=== PATIENT | male | born 1965 | race Asian ===

== ENCOUNTER 2021-08-31 16:55 | Emergency (ER) | payer OTHER, SELFPAY ==
[2021-08-31 17:00] VITALS: BP 148/95; PULSE 83; RESP 18; TEMP 36.6; O2SAT 100
[2021-08-31 17:10] VITALS: BP 148/95; PULSE 83; RESP 18; TEMP 36.6; O2SAT 100
--- NOTE | 2021-08-31 17:18 | ED.URI ---
HPI - URI/Sore Throat General Chief Complaint: Upper Respiratory Infection Stated Complaint: cough/fever/sullivan/congestion Time Seen by Provider: 08/31/21 17:08 Source: patient and RN notes reviewed Mode of arrival: ambulatory Limitations: no limitations History of Present Illness HPI Narrative: Patient presents today complaining of fever, fatigue, rhinorrhea, cough x2 days. Patient had a positive home test for COVID-19 and states he needs a note to confirm this for work. He has been taking ibuprofen at home with some relief of symptoms. Denies chest pain, shortness of breath, or any additional symptoms. States his and sister are both positive at home as well. MD elicited complaint: fever and cough Related Data Home Medications Medication Instructions Recorded Confirmed amlodipine 5 mg PO DAILY 08/31/21 08/31/21 Allergies Allergy/AdvReac Type Severity Reaction Status Date / Time No Known Allergies Allergy Verified 08/31/21 17:09 Review of Systems Review of Systems: CONSTITUTIONAL: Denies body aches, chills, or sweats.+ Fever, fatigue EYES: Denies visual changes, redness, or discharge. ENT: Denies congestion, sore throat, or otalgia.+ Rhinorrhea CARDIOVASCULAR: Denies chest pain, palpitations, or edema. RESPIRATORY: Denies dyspnea.+ Cough GASTROINTESTINAL: Denies abdominal pain, nausea, vomiting, or diarrhea. GENITOURINARY: Denies dysuria or hematuria. SKIN: Denies rash, itching, or wounds. MUSCULOSKELETAL: Denies back pain, joint pain, or myalgia. NEUROLOGIC: Denies headache, numbness, tingling, or weakness. PSYCH: Denies depression or anxiety. FOR[facility]LY [facility] Past Medical History Medical History (Updated 08/31/21 @ 17:23 by Karen Bear, [facility], ) Hypertension Comments At time of signature, I have reviewed and agree with nursing past medical, surgical, social and family history unless otherwise noted. Please see nursing chart for further information. There is no relevant family history pertinent to the presenting complaint Exam Narrative: GENERAL: Well-appearing, well-nourished, and in no acute distress. HEAD: Normocephalic, atraumatic. EYES: EOMI. No redness or drainage. Conjunctivae normal. ENT: Mucous membranes pink and moist. Nares clear. No rhinorrhea. TMs normal bilaterally. Throat normal. Uvula midline. NECK: Normal AROM. Supple. No lymphadenopathy. CHEST: No respiratory distress. Clear to auscultation. HEART: Regular rate and rhythm. No murmur appreciated. Normal peripheral pulses. EXTREMITIES: Normal range of motion. No edema. SKIN: Warm, dry, no rash. Capillary refill normal. Normal skin turgor. NEURO: No focal deficits. Alert and oriented x3. Gait steady. PSYCH: Normal affect. No signs of depression or anxiety. Course Course Level of Care: Express Care Visit Vital Signs Vital signs: Vital Signs Temperature 97.9 F 08/31/21 17:00 Pulse Rate 83 08/31/21 17:00 Respiratory Rate 18 08/31/21 17:00 Blood Pressure 148/95 H 08/31/21 17:00 Pulse Oximetry 100 08/31/21 17:00 Temperature 97.9 F 08/31/21 17:10 Pulse Rate 83 08/31/21 17:10 Respiratory Rate 18 08/31/21 17:10 Blood Pressure 148/95 H 08/31/21 17:10 Pulse Oximetry 100 08/31/21 17:10 Reviewed. Pt has been instructed to follow up with his PCP regarding his elevated blood pressure today. MDM - URI/Sore Throat Differential Diagnosis Differential diagnosis: Likely upper respiratory infection, viral infection and other (COVID-19) Critical Care Time Critical Care Time Critical Care Time: No Discharge Plan Discharge Clinical Impression: COVID-19 Patient Disposition: Home, Self-Care Condition: Stable Instructions: COVID-19 (Coronavirus Disease 2019) (ED) Additional Instructions: You have tested positive for COVID-19. This requires 5 days of quarantine in total, followed by 5 days of mask wearing. You may come off of 5 days of quarantine if your symptoms are improving. If not, you
== END 2021-08-31 17:30 | disposition home or self-care (01) ==
PROVIDERS: Emergency Provider Nurse Practitioner
DX: U07.1 COVID-19 (principal); I10 Essential (primary) hypertension
CPT/HCPCS: 99211; G0463

== ENCOUNTER 2022-03-19 11:54 | Emergency (ER) | payer OTHER, SELFPAY ==
[2022-03-19 11:59] VITALS: BP 140/90; PULSE 85; RESP 16; TEMP 36.4; O2SAT 97
--- NOTE | 2022-03-19 11:59 | ED.GENADULT ---
HPI - General Adult General Chief complaint: Extremity Injury, Lower Stated complaint: Body Pain,Knee Pain Time Seen by Provider: 03/19/22 12:05 Source: patient, RN notes reviewed and old records reviewed Mode of arrival: ambulatory Limitations: no limitations History of Present Illness HPI narrative: 56-year-old male presents to the [facility] with concerns over COVID. Patient is complaining of left knee pain which he was evaluated for at [facility] yesterday, diagnosed with fluid on his knee and prescribed medications. Also reports joint pain that has been moving around since even before COVID started. Patient reports his joints ache on a regular basis. Reports having lab work done, according to discharge papers had a CBC, CMP, kidney functions, ESR done yesterday, patient reports all were negative. Has an appointment with his primary care provider Patient reports the last 5 days his symptoms have gotten worse. Denies fevers. No nausea vomiting or diarrhea. Denies chest pain Related Data Home Medications Medication Instructions Recorded Confirmed amlodipine 5 mg tablet 5 mg PO DAILY 08/31/21 08/31/21 ergocalciferol (vitamin D2) 1,250 03/19/22 mcg (50,000 unit) capsule meloxicam 15 mg tablet mg 03/19/22 Allergies Allergy/AdvReac Type Severity Reaction Status Date / Time No Known Allergies Allergy Verified 08/31/21 17:09 Review of Systems Review of Systems: All systems reviewed & are unremarkable except as noted in HPI and below Constitutional: Constitutional: Reports no additional constitutional complaints, Denies chills and Denies fever(s) Eyes: Eyes: Reports no additional eye complaints ENT: Reports system reviewed and no additional complaints, except as documented Cardiovascular: Cardiovascular: Reports no additional cardiovascular complaints Respiratory: Respiratory: Reports no additional respiratory complaints Gastrointestinal: Gastrointestinal: Reports no additional gastrointestinal complaints Musculoskeletal: Musculoskeletal: Reports as per HPI, Reports arthralgias (Left knee) and Reports joint swelling (Left knee) Integumentary/Breasts: Skin/Breast: Reports system reviewed and no additional complaints, except as docu Neurologic: Reports system reviewed and no additional complaints, except as documented Psychiatric: Psychiatric: Reports no additional psychiatric complaints Allergic/Immunologic: Allergic/Immunologic: Reports no additional allergic/immunologic complaints PMFSH Past Medical History Medical History Hypertension Social History Social History (Updated 03/19/22 @ 19:26 by Chanel Gustafson APRN) Gender identity (if verbalized by the patient): Male Comments At the time of my signature, I reviewed and agree with the nursing past medical, surgical, social, and family history. There is no relevant family history pertinent to the patient complaint. Exam Const: General: healthy appearing, no acute distress and alert Nutritional Appearance: well nourished Orientation/consciousness: patient oriented x3 Limitations: no limitations HENMT: Head: normal to inspection Ears: external ears normal Eyes: General: appearance normal, both eyes and all related structures Pupils: Equal, round and reactive pupils present Neck: Neck: normal visual inspection, no lymphadenopathy and no meningeal signs Chest: Chest palpation & inspection: normal inspection of the chest Resp: Effort & Inspection: normal respiratory effort and no use of accessory muscles Auscultation: clear to auscultation bilaterally, no crackles, no rales, no rhonchi and no wheezes Cardio: Rate: regular rate Rhythm: regular rhythm Back/Spine/Pelvis: Cervical Spine: normal cervical lordosis Thoracic/Lumbar Spine: thoracic and lumbar spine normal to inspection Skin: General skin exam: normal color Rashes: no rashes Wounds: no wounds Neuro: General:
== END 2022-03-19 12:45 | disposition home or self-care (01) ==
PROVIDERS: Emergency Provider Nurse Practitioner
DX: M25.50 Pain in unspecified joint (principal); Z20.822 Contact with and (suspected) exposure to COVID-19; I10 Essential (primary) hypertension
CPT/HCPCS: 87426; 99213; C9803; G0463

== ENCOUNTER 2022-05-14 12:43 | Outpatient (CLI) | payer OTHER, SELFPAY ==
--- NOTE | ~2022-05-14 | XR_ITS ---
EXAMINATION: XR chest 2V 05/14/2022 12:59 INDICATION: Chronic cough and chest tightness PROCEDURE: 2 view chest COMPARISON: Comparison to multiple prior studies sequentially, with oldest reviewed study dated 06/14. FINDINGS: The lungs are clear. The cardiomediastinal silhouette is within normal limits. There are no pleural effusions. There is no pneumothorax suspected. IMPRESSION: 1: NO ACUTE CARDIOPULMONARY DISEASE. Reviewed, dictated and finalized at location A.
== END 2022-05-14 12:44 | disposition home or self-care (01) ==
PROVIDERS: PCP Internal Medicine; Visit Provider Internal Medicine
DX: R05.3 Chronic cough (principal)
CPT/HCPCS: 71046

== ENCOUNTER 2022-06-30 13:30 | Outpatient (CLI) | payer OTHER, SELFPAY ==
--- NOTE | ~2022-06-30 | XR_ITS ---
EXAM: XR lumbar spine 2-3V DATE: 06/30/2022 13:53 HISTORY: low back pain, NKI . COMPARISON: None available. FINDINGS: 5 nonrib-bearing lumbar-type vertebral bodies. Pedicles intact. Normal vertebral body alig nment. Vertebral body heights preserved. Multilevel disc space narrowing and marginal osteophytosis, moderate at L3-4, mild at all remaining lumbar levels. Normal facets and posterior elements. No fract ure or dislocation. IMPRESSION: Lumbar spondylosis. Reviewed, dictated and finalized at location K. L ALIGNMENT TECHNICIAN IMPRESSION: Lumbar spondylosis.
== END 2022-06-30 13:31 | disposition home or self-care (01) ==
PROVIDERS: PCP Emergency Medicine; Visit Provider Emergency Medicine
DX: M47.896 Other spondylosis, lumbar region (principal)
CPT/HCPCS: 72100

== ENCOUNTER 2024-11-09 14:01 | Outpatient (CLI) | payer OTHER, SELFPAY ==
--- NOTE | ~2024-11-09 | XR_ITS ---
EXAMINATION: XR chest 2V 11/09/2024 14:18 INDICATION: Cough PROCEDURE: 2 view chest COMPARISON: Comparison to multiple prior studies sequentially, with oldest reviewed study dated 05/13. FINDINGS: The lungs are clear. The cardiomediastinal silhouette is within normal limits. There are no pleural effusions. There is no pneumothorax suspected. IMPRESSION: 1: NO ACUTE CARDIOPULMONARY DISEASE. Reviewed, dictated and finalized at location A.
--- OUTSIDE RECORDS SUMMARY | 2024-11-09 15:32 | XMS_ITS | Clinical Summary ---
Author Organization [facility] Address [address] [place] [id number] Care Team Providers Care Child Center Assistant Name Role Phone Lauryn Hogan MD Primary Care Provider [phone] Allergies No known active allergies Medications meloxicam (MOBIC) 7.5 mg tablet Take 1 tablet (7.5 mg total) by mouth daily for 14 days 14 tablet 2 Active diclofenac sodium (VOLTAREN) 1 % gel Apply 1 g topically 4 (four) times a day for 7 days 28 g 2 Active Social History Tobacco Use Types Packs/Day Years Used Date Smoking Tobacco: Never Assessed Personal Safety Answer Date Recorded Getting School Help Needed Not on file 10/26 Sex and Gender Information Value Date Recorded Sex Assigned at Not on file 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 Gender Identity Not on file Sexual Orientation Not on file Last Filed Vital Signs Vital Sign Reading Time Taken Comments Blood Pressure 125/98 03/18/2022 11:53 AM CDT Pulse 81 03/18/2022 11:53 AM CDT Temperature 36.6 C (97.8 F) 03/18/2022 11:53 AM CDT Respiratory Rate 16 03/18/2022 11:53 AM CDT Oxygen Saturation 95% 03/18/2022 11:53 AM CDT Inhaled Oxygen Concentration - - Weight 82.1 kg (181 lb) 03/18/2022 11:53 AM CDT Height 177.8 cm (5' 10 ) 03/18/2022 11:53 AM CDT Body Mass Index 25.97 03/18/2022 11:53 AM CDT Plan of Treatment Health Maintenance Due Date Last Done Comments Colon Cancer Screening-Colonoscopy 1965 Depression Screening 1965 Hepatitis C Screening 1965 Regular Well Visit/Exam 18-64 1983 Zoster Vaccine (1 of 2) 2015 Prostate Cancer Screening-PSA 04/02/2018 04/02/2016 Covid-19 Vaccine (3 - 2023-2 5 season) 2024 12/30/2020, 12/09/2020 Influenza Vaccine (#1) 2024 05/11/2016 DTaP/Tdap/Td Vaccine (2 - Td or Tdap) 03/21/2026 03/21/2016 Hepatitis B Screening Completed 10/17/2016 , 05/11/2016, 03/21/2016 Pneumococcal vaccine <65 Aged Out No longer eligible based on patient's age to complete this topic Procedures Procedure Name Priority Date/Time Associated Diagnosis Comments PSA SCREEN Routine 04/02/2016 3:46 PM CDT from Last 3 Months or Most Recently Relevant to Health Maintenance Results * PSA screen (04/02/2016 3:46 PM CDT) [facility] PSA Screen 0.9 0.0 - 3.9 ng/mL 04/02/2016 5:52 PM CDT [facility]ULTS Comment: Method: ECLIA Values obtained by different assay methods cannot be used interchangeably. Use sequential testing to confirm baseline if assay method changed during patient monitoring. 04/02/2016 3:46 PM CDT 04/02/2016 4:57 PM CDT Lauryn Hogan MD LAB BLOOD ORDERABLES Final Result [facility] HISTORICAL RESULTS from Last 3 Months or Most Recently Relevant to Health Maintenance Insurance [facility] Care Teams Child Center Assistant Relationship Specialty Start Date End Date Lauryn Hogan MD [address] [facility] [place] [address] PCP - General Internal Medicine 03/18/22
--- OUTSIDE RECORDS SUMMARY | 2024-11-09 15:32 | XMS_ITS | CONTINUITY OF CARE DOCUMENT ---
Author Name arley carlosmerly Address Unknown Organization [facility] Address [id number] [place] [address] [address] [place] [address] Phone [phone] Care Team Providers Care Internet Assessor Name Role Phone Raúl Nova MD Unavailable [phone] MARIA GONCALVES MD Unavailable [phone] MARIA GONCALVES MD Unavailable [phone] PROBLEMS Condition Status Date Provider Notes Cardiology examination active Raúl pulido MD Hypertension active Raúl Nova MD Chest pain-type to be determined active Vic Nova MD Exertional shortness of breath active Kathy Nova MD Prediabetes active Raúl Nova MD ENCOUNTERS Date Type Provider Location Encounter Diag nosis - In-person encounter Office Visit Raúl Nova MD [facility] - In-person encounter Office Visit Raúl Nova MD [facility] Cardiology examinationHypertensionChest pain-type to be determinedExertional shortness of breathPrediabetes VITAL SIGNS Date Observation Value Provider Body Mass Index (Ratio) 25.11 kg/m2 Henny Nova MD blood pressure, diastolic 103 mm[Hg] Ke rri Ilsa blood pressure, systolic 147 mm[Hg] Ker ri Ilsa blood pressure, cuff size large Ke veronica Shayreyjazmine oxygen saturation, oximetry 97 % Kelsey Ilsa respiratory rate E&M 16 /min Kelsey Canela bhaskarcandiejazmine pulse rate 75 /min Kelsey Kolopezlori mary weight E&M 175 [lb_av] Kelsey Kojose hernandez height E&M 70 [in_i] Kelsey Boyd carlozer weight E&M 174 [lb_av] Collettedangelo LunsfordWhite Body Mass Index (Ratio) 24.99 kg/m2 Henny Nova MD blood pressure, diastolic 99 mm[Hg] [facility] Moses blood pressure, systolic 140 mm[Hg] Jabier Moses respiratory rate E&M 16 /min Ronit el oxygen saturation, oximetry 97 % Ronit Moses pulse rate 75 /min Ronit Moses weight E&M 174.2 [lb_av] Ronit Moses height E&M 70 [in_i] Ronit Moses HISTORY OF MEDICATION USE Medication Status Instructions Dates Provider Indications Com ments Lotrel 5-10 mg capsule active Take 1 capsule by mouth once a day Raúl Nova MD amlodipine 5 mg tablet completed - Raúl Nova MD SOCIAL HISTORY Date Observation Value Provider social history E&M S moking History: P rajeev has never smoked. Raúl Nova MD smoking status Never smoker Kelsey posey passive cigarette sm doreen exposure no Yashira José chewing tobacco use Never Yashira dutta social history reviewed E&M revi ewed - no changes required Yashira José number of grandchildren Raúl Nova MD social history E&M S moking History: Nicanor boo has never smoked. Raúl Nova MD social history reviewed E&M revi ewed - no changes required Raúl Nova MD passive cigarette sm doreen exposure no Ronitdakota Moses chewing tobacco use Never Ronit Larry machado smoking status Never smoker Ronit Josué INSURANCE PROVIDERS Payer name Policy type / Coverage type Cresencio red green party ID [place] MEDICA[employer] (2) Medicaid [id number] ADVANCE DIRECTIVES Name Date DISCUSSED - NO DECISION MADE TREATMENT PLAN Date Name Performer [id number],S, N eeds cardiac workup. No family hx of heart disease. August 17, 2022 CONCLUSIONS: 1 . Hyperdynamic left ventricular function. Normal left ventricular size. Normal left ventricular wall thickness. E/E': 7.0 Left v entricular ejection fraction is measured at 75 %. 2 . Normal right ventricular size. 3 . Normal appearing tricuspid valve leaflets. There is trace physiologic tricuspid valve regurgitation. IVC is normal in size with n ormal respiratory response. Estimated peak pulmonary artery systolic pressure is 15.0 mmHg. E lectronically Signed By: Vahe Nova MD, FACC 2 022-12-16 16:29:44 ACCOUNT SERVICE REPRESENTATIVE C C: Raúl Nova MD, FACC Summary and Interpretation 1 . Normal exercise capacity\par 2. Resting hypertension with normal response to exercise\par 3. No diagnostic ST or T changes\par 4. No significant arrhythmias\par 5. There is no evidence for exercise-induced myocardial ischemia Raúl Nova MD [id number],C,Start him on Lotrel 5-10mg Raúl Nova MD [id number],S,N egative stress test for ischemia, hypertensive response. Recommended additional BP medication. Raúl Nova MD [id number],S,Treadmill str ess test. Check Echo. Raúl Nova MD [id number],C,O n Isabella Young is updated medication list for this problem includes: Amlodipine 5 Mg Tablet (Amlodipine) BP today: 140/99 Raúl Nova MD [id number],S,N eeds cardiac workup. No family hx of heart disease. Raúl Nova MD Cardiology: N eeds cardiac workup. No family hx of heart disease. August 17, 2022 CONCLUSIONS: 1 . Hyperdynamic left ventricular function. Normal left ventricular size. Normal left ventricular wall thickness. E/E': 7.0 Left v entricular ejection fraction is measured at 75 %. 2 . Normal right ventricular size. 3 . Normal appearing tricuspid valve leaflets. There is trace physiologic tricuspid valve regurgitation. IVC is normal in size with n ormal respiratory response. Estimated peak pulmonary artery systolic pressure is 15.0 mmHg. E lectronically Signed By: Vahe Nova MD, FACC 2 022-12-16 16:29:44 ACCOUNT SERVICE REPRESENTATIVE C C: Raúl Nova MD, FACC Summary and Interpretation 1 . Normal exercise capacity\par 2. Resting hypertension with normal response to exercise\par 3. No diagnostic ST or T changes\par 4. No significant arrhythmias\par 5. There is no evidence for exercise-induced myocardial ischemia Raúl Nova MD Cardiology:Start him on Lotrel 5 -10mg Raúl Nova MD Cardiology:Negative stress test for ischemia, hypertensive response. Recommended additional BP medication. Raúl Nova MD Cardiology:Treadmill stress test . Check Echo. Raúl Nova MD Cardiology:On H is updated medication list for this problem includes: Amlodipine 5 Mg Tablet (Amlodipine) BP today: 140/99 Raúl Nova MD Cardiology:Needs car diac workup. No family hx of heart disease. Raúl Nova MD Date Name 6 minute walk test Ambulatory Oximetry DLCO - 34441 FRC - 78140 FVC - 17688 Stress Routine Complete Echo HISTORY OF PROCEDURES Procedure Date Procedure Name Provider Procedure Notes S tatus Spirometry Raúl Nova MD compl eted FVC / MVV - 25531 Raúl Nova MD completed FRC - 87626 Raúl Nova MD comp leted SpO2 w/o 6min walk/titration Raúl Nova MD completed SVC - 60537 Raúl Nova MD comp leted DLCO - 02930 Raúl Nova MD com pleted EKG Raúl Nova MD compl eted
--- OUTSIDE RECORDS SUMMARY | 2024-11-09 15:32 | XMS_ITS | Data Portability ---
Author Organization [facility] IP Address [address] [place] [id number] Care Team Providers Care Manager New Product Name Role Phone WESLEY NOVA Referring Provider WESLEY NOVA Primary Care Provider Assessment No assessment recorded. Plan of Treatment Reminders Order Date Submit Date Provider Last Modified By Organization Details Last Modified Time Details Appointments None recorded. Lab urinalysis , dipstick 2017 018 rprophete 1 In-Office Order, Internal Use Only DO Not Attach Compendium DO Not Attach Compendium, Do Not Delete/merge, [id number] 8 13:12:35 urinalysis , dipstick 2017 018 rprophete 1 In-Office Order, Internal Use Only DO Not Attach Compendium DO Not Attach Compendium, Do Not Delete/merge, [id number] 8 12:16:15 PSA, serum or plasma 2017 018 [facility] (Lab), [address] [place], [address], 8 07:34:39 Referral None recorded. Procedures None recorded. Surgeries None recorded. Imaging US, kidney - Drink 24 - 32 oz prior to test and do not empty bladder 2017 018 ÓSCAR Not available 8 10:09:25 US, bladder - Drink 24 - 32 oz prior to test and do not empty bladder / Patient also having US Bladder 2017 018 ÓSCAR Not available 8 12:40:27 Medication Orders None recorded. Patient TargetsNo targets recorded. Patient Instructions Encounter Date Encounter Id Patient Instructions Last Modified By Organization Details Last Modified Time 01/15/2018 [id number] blood in the urine: care instructions Not available 01/15/2018 12:16:15 Doing US for history of blood in urine. Not available 01/15/2018 12:13:42 01/29/2018 [id number] blood in the urine: care instructions Not available 01/29/2018 13:12:35 Blood in urine has cleared. Never had pain or abnormal imaging. Recheck in 0ne tear. Not available 01/29/2018 13:11:55 Reason for Referral None Reported. Results Created Date Observation Date Name Description Value Unit Range Abnormal Flag Note LastModifiedBy Organization Detail LastModifiedTime 01/16/20 18 01/15/2018 urina lysis , dipst ick Leukocytes Negati ve Not Available In-Office Order Internal Use Only DO Not Attach Compendium DO Not Attach Compendium, Do Not Delete/merge, [id number] 01/15/2018 11:46:46 01/16/20 18 01/15/2018 urina lysis , dipst ick Nitrite negati ve Not Available In-Office Order Internal Use Only DO Not Attach Compendium DO Not Attach Compendium, Do Not Delete/merge, 01/15/2018 11:46:46 01/16/20 18 01/15/2018 urina lysis , dipst ick Protein Negati ve mg/dL Not Available In-Office Order Internal Use Only DO Not Attach Compendium DO Not Attach Compendium, Do Not Delete/merge, [id number] 01/15/2018 11:46:46 01/16/20 18 01/15/2018 urina lysis , dipst ick pH 5.0 Not Available In-Office Order Internal Use Only DO Not Attach Compendium DO Not Attach Compendium, Do Not Delete/merge, 01/15/2018 11:46:46 01/16/20 18 01/15/2018 urina lysis , dipst ick Blood Negati ve Jonnathan/uL Not Available In-Office Order Internal Use Only DO Not Attach Compendium DO Not Attach Compendium, Do Not Delete/merge, [id number] 01/15/2018 11:46:46 01/16/20 18 01/15/2018 urina lysis , dipst ick Specific [place] 1.020 Not Available In-Off ice Order Internal Use Only DO Not Attach Compendium DO Not Attach Compendium, Do Not Delete/merge, 01/15/2018 11:46:46 01/16/20 18 01/15/2018 urina lysis , dipst ick Ketone Negati ve mg/dL Not Available In-Office Order Internal Use Only DO Not Attach Compendium DO Not Attach Compendium, Do Not Delete/merge, 01/15/2018 11:46:46 01/16/20 18 01/15/2018 urina lysis , dipst ick Bilirubin Negati ve Not Available In-Office Order Internal Use Only DO Not Attach Compendium DO Not Attach Compendium, Do Not Delete/merge, 01/15/2018 11:46:46 01/16/20 18 01/15/2018 urina lysis , dipst ick Glucose Negati ve mg/dL Not Available In-Office Order Internal Use Only DO Not Attach Compendium DO Not Attach Compendium, Do Not Delete/merge, 01/15/2018 11:46:46 01/16/20 18 01/15/2018 urina lysis , dipst ick Appearance Clear Not Available In-Offi ce Order Internal Use Only DO Not Attach Compendium DO Not Attach Compendium, Do Not Delete/merge, 01/15/2018 11:46:46 01/16/20 18 01/15/2018 urina lysis , dipst ick Color Yellow Not Available In-Office Order Internal Use Only DO Not Attach Compendium DO Not Attach Compendium, Do Not Delete/merge, 01/15/2018 11:46:46 01/30/20 18 01/29/2018 urina lysis , dipst ick Leukocytes Negati ve Not Available In-Office Order Internal Use Only DO Not Attach Compendium DO Not Attach Compendium, Do Not Delete/merge, 01/29/2018 13:00:37 01/30/20 18 01/29/2018 urina lysis , dipst ick Nitrite negati ve Not Available In-Office Order Internal Use Only DO Not Attach Compendium DO Not Attach Compendium, Do Not Delete/merge, 01/29/2018 13:00:37 01/30/20 18 01/29/2018 urina lysis , dipst ick Protein Negati ve mg/dL Not Available In-Office Order Internal Use Only DO Not Attach Compendium DO Not Attach Compendium, Do Not Delete/merge, 01/29/2018 13:00:37 01/30/20 18 01/29/2018 urina lysis , dipst ick pH 6.0 Not Available In-Office Order Internal Use Only DO Not Attach Compendium DO Not Attach Compendium, Do Not Delete/merge, 01/29/2018 13:00:37 01/30/20 18 01/29/2018 urina lysis , dipst ick Blood Negati ve Jonnathan/uL Not Available In-Office Order Internal Use Only DO Not Attach Compendium DO Not Attach Compendium, Do Not Delete/merge, 01/29/2018 13:00:37 01/30/20 18 01/29/2018 urina lysis , dipst ick Specific [place] 1.015 Not Available In-Off ice Order Internal Use Only DO Not Attach Compendium DO Not Attach Compendium, Do Not Delete/merge, 01/29/2018 13:00:37 01/30/20 18 01/29/2018 urina lysis , dipst ick Ketone Negati ve mg/dL Not Available In-Office Order Internal Use Only DO Not Attach Compendium DO Not Attach Compendium, Do Not Delete/merge, 01/29/2018 13:00:37 01/30/20 18 01/29/2018 urina lysis , dipst ick Bilirubin Negati ve Not Available In-Office Order Internal Use Only DO Not Attach Compendium DO Not Attach Compendium, Do Not Delete/merge, 01/29/2018 13:00:37 01/30/20 18 01/29/2018 urina lysis , dipst ick Glucose Negati ve mg/dL Not Available In-Office Order Internal Use Only DO Not Attach Compendium DO Not Attach Compendium, Do Not Delete/merge, 01/29/2018 13:00:37 01/30/20 18 01/29/2018 urina lysis , dipst ick Appearance Clear Not Available In-Offi ce Order Internal Use Only DO Not Attach Compendium DO Not Attach Compendium, Do Not Delete/merge, [id number] 01/29/2018 13:00:37 01/30/20 18 01/29/2018 urina lysis , dipst ick Color Yellow Not Available In-Office Order Internal Use Only DO Not Attach Compendium DO Not Attach Compendium, Do Not Delete/merge, [id number] 01/29/2018 13:00:37 01/22/20 18 01/21/2018 US, bladd er No observ ation record ed. Not Available 01/22 14:38:33 02/05/20 18 01/21/2018 US, kidne y No observ ation record ed. [address] Out Patient Centralized Scheduling [address] [facility] [place], [address], 02/04/2018 10:10:06 Result Notes None recorded. Problems Name Problem SNOMED Code Status Onset Date Resolution Date Notes Provider Name and Address Organization Details Recorded Time Essential hypertension 91230343 Active 2017 Gwen ramos [facility] 8 11:46:13 Problem Notes None recorded. Procedures Surgical History None recorded. Imaging Results Imaging Date Name Status LastModified by Organiz ation Details LastModified Time 01/21/2018 US, bladder completed Information n ot available 01/22/2018 14:38:33 01/21/2018 US, kidney completed [address] Out Patient Centralized Scheduling [address] [place], [address], 02/04/2018 10:10:06 Procedure Notes None recorded. Medical Equipment None Reported. Allergies Allergen ID Allergen Name Allergen Category Reaction Reaction Severity Criticality Documentation Date Start Date Code Code System Note Provider Name and Address Organization Details Recorded Time 583086 purified protein derivativ e of tuberculi n medicatio n Not available Not available Not available 01/15/2018 8948 RxNorm Not Available Not Available Not Available Medications Name Sig Start Date Stop Date Status Note LastModified by Organization Details LastModified Time amlodipine 5 mg tablet active Not Available Not Available Not Available triamcinolone acetonide 0.1 % topical cream active Not Available Not Availabl e Not Available amoxicillin 875 mg tablet active Not Available Not Available No t Available levofloxacin 500 mg tablet active Not Available Not Availabl e Not Available clotrimazole 1 % topical cream active Not Available Not Availa ble Not Available amoxicillin 875 mg-potassium clavulanate 125 mg tablet active Not Available Not Available No t Available Vitals Date Recorded Body height Body mass index (BMI) Body weight Heart rate Body temperature Systolic blood pressure Diastolic blood pressure Provider Name and Address Organization Details Last Updated DateTime 8 177.8 cm 23.3 kg/m2 19728.1 2 g 73 /min 97.3 [degF] 136 mm[Hg] 93 mm[Hg] Gwen Lorenz [facility] 8 11:42:52 Date Recorded Body height Body mass index (BMI) Body weight Heart rate Body temperature Systolic blood pressure Diastolic blood pressure Provider Name and Address Organization Details Last Updated DateTime 8 177.8 cm 23.4 kg/m2 12892.5 6 g 67 /min 97.3 [degF] 129 mm[Hg] 91 mm[Hg] Gwen Lorenz [facility] 8 13:00:22 Date Recorded Body height Body mass index (BMI) Body weight Heart rate Respiratory rate Body temperature Systolic blood pressure Diastolic blood pressure Provider Name and Address Organization Details Last Updated DateTime 9 175.26 cm 26.6 kg/m2 41863.9 9 g 85 /min 18 /min 97.2 [degF] 132 mm[Hg] 87 mm[Hg] Shahana Mills LPN [facility] 9 16:44:20 Social History Question Answer Notes LastModified by Organizat ion Details LastModified Time Tobacco Smoking Status Never Smoker Gwen ramos, [place] - [facility] 01/15/2018 11:46:27 What Was The Date Of Your Most Recent Tobacco Screening? 01/29/2018 Information n ot available 03/05/2019 Sex: Unknown Functional Status None recorded. Mental Status None recorded. Family History Nothing Reported. Medical History No medical history recorded. Past Encounters Encounter ID Performer Location Encounter Start Date Encounter Closed Date Diagnosis/Indication Diagnosis SNOMED-CT Code Diagnosis ICD10 Code Diagnosis Note [id number] Boom Haywood MD [facility] [address] [place] [address] 01/15/2018 11:15:20 01/15/2018 12:41:12 Blood in urine 71139334 R31.9 [id number] Boom Haywood MD [facility] [address] [place] [address] 01/29/2018 11:43:15 01/29/2018 15:04:24 Blood in urine 61928770 R31.9 [id number] Matias Liriano MD [facility] [address] [place] [address] 08/03/2019 16:33:49 08/04/2019 10:44:48 Oral lesion 9442252610 107 K13.70 i discussed with pt and he agreed to watch it doesn't appear to be a cancer Chronic rhinitis 2243166 6 J31.0 use otc ointment PRN Health Concerns Section Related Observation LastModified by Organization Detai ls LastModified Time None Recorded Concern Status LastModified by Organization Details LastModified Time None Recorded Advance Directives Directive None Recorded Payers Encounter Date Sequence Insurance Name Policy Number Policy Mcallister Covered Member ID Mcallister Member ID Guarantor Name 01/15/2018 1 [facility] PRIOR TO 02/09/2021 (MEDICAID REPLACEMENT - HMO) Nelson E Malghani [id number] Nelson Malani 01/29/2018 1 [facility] PRIOR TO 02/09/2021 (MEDICAID REPLACEMENT - HMO) Nelson E Malghani [id number] Nelson Malani 08/03/2019 1 [facility] PRIOR TO 02/09/2021 (MEDICAID REPLACEMENT - HMO) Nelson E Malghani [id number] Nelson Notes Date Note Type Note Provider Name and Address Organization Details Recorded Time 01/15/2018 text/html History of blood in urine and possible UTI years ago in [place]. Parents over 80 with no renal disease. Father now passed. Had small blood in urine without pain or change in voiding. No pain now but some premature ejaculation. Aware of squeeze technique and requests instruction. Prostate Health score of 8/35 with (2) bother. No personal or family history of stones. Boom Haywood MD [address], [place], [address], [facility] 01/15/2018 12:35:26 01/29/2018 text/html No blood or infection in urine now. Normal renal US and PSA.. Boom Haywood MD [address], [place], [address], [facility] 01/29/2018 13:12:38 08/03/2019 text/html Pt complaining o f a lesion in his mouth for the last month. He occasionally get a dry and bleeding in his nose Matias Liriano MD [address], [place], [address], [facility] 08/03/2019 17:06:42
--- OUTSIDE RECORDS SUMMARY | 2024-11-09 15:32 | XMS_ITS | Encounter Summary ---
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 Historical Provider Final Res ult documented in this encounter Visit Diagnoses Not on filedocumented in this encounter Care Teams Help Desk Engineer Relationship Specialty Start Date End Date Lauryn Hogan MD [address] [facility] [place] [address] PCP - General Internal Medicine 03/18/22 documented as of this encounter
--- OUTSIDE RECORDS SUMMARY | 2024-11-09 15:32 | XMS_ITS | Clinical Summary ---
Author Organization [facility] Address [address] [place] [address] Care Team Providers Care Surgical Oncologist Name Role Phone Lauryn Hogan MD Primary Care Provider [phone] Source Comments [facility],non-owned Affiliates and Associated Physician Practices is amultiple site organization consisting of ambulatory clinics and hospital sitesin [place], [place], [place] and [place]. This disclosure is being madepursuant to the Care Everywhere program and may not contain all information available regarding this patient. Last updated 18.[facility] Allergies No known active allergies Medications * Be aware that medications may not be up to date on this document. Alwaysverify current medications with the patient. Medication Sig Dispensed Refills Start Date End Date Status amLODIPine (Norvasc) 10 MG tablet Take 1 (one) tablet by mouth once daily Active Active Problems Problem Noted Date Diagnosed Date Parotid mass 05/08/2024 Essential hypertension 01/15/2018 Social History Tobacco Use Types Packs/Day Years Used Date Smoking Tobacco: Never Smokeless Tobacco: Never Tobacco Cessation:Counseling Given: Not Answered Alcohol Use Standard Drinks/Week Comments Never 0 (1 standard drink = 0.6 oz pur e alcohol) Sex and Gender Information Value Date Recorded Sex Assigned at Not on file Gender Identity Not on file Sexual Orientation Not on file Last Filed Vital Signs Vital Sign Reading Time Taken Comments Blood Pressure - - Pulse - - Temperature - - Respiratory Rate - - Oxygen Saturation - - Inhaled Oxygen Concentration - - Weight 78 kg (172 lb) 05/08/2024 3:09 PM CDT Height 175.3 cm (5' 9 ) 05/08/2024 3:09 PM CDT Body Mass Index 25.4 05/08/2024 3:09 PM CDT Plan of Treatment Health Maintenance Due Date Last Done Comments BROOKE (AGES 45-75) - COL ON CA SCREENING 1965 COLON MONITORING 1965 COLONOSCOPY - COLON CA SCREENING 1965 CT COLONOGRAPHY - COLON CA SCREENING 1965 Colorectal Cancer Screening 1965 FIT - COLON CA SCREENING 1965 FLEX SIG - COLON CA SCREENING 1965 LIPID TESTING 1965 HIV SCREENING 1980 HEPATITIS C SCREENING 10/01/1983 DTAP/TDAP/TD VACCINES (1 - Tdap) 1984 HEPATITIS B VACCINE (1 of 3 - 19+ 3-dose series) 1984 PNEUMOCOCCAL VACCINE 50+ (1 of 1 - PCV) 2015 ZOSTER VACCINE (1 of 2) 2015 COVID-19 VACCINE (1 - 2023-2 5 season) 2024 INFLUENZA VACCINE (#1) 2024 SCREENING FOR DIABETES 05/08/2024 DEPRESSION SCREENING 08/12/2024 HIB VACCINE Aged Out No longer eligi ble based on patient's age to complete this topic HPV VACCINE Aged Out No longer eligi ble based on patient's age to complete this topic MENINGOCOCCAL (Group B) VACC INE SHARED DECISION-MAKING Aged Out No longer eligibl e based on patient's age to complete this topic MENINGOCOCCAL GROUPS A/C/Y/W VACCINE Aged Out No longer eligible b ased on patient's age to complete this topic PNEUMOCOCCAL VACCINE Aged Out No long er eligible based on patient's age to complete this topic Care Teams Surgical Oncologist Relationship Specialty Start Date End Date Lauryn Hogan MD [address] [facility] [place] [address] PCP - General Internal Medicine 05/08/24
--- OUTSIDE RECORDS SUMMARY | 2024-11-09 15:32 | XMS_ITS | Referral Summary ---
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 Use sequential testing to confirm baseline if assay method changed during patient monitoring. 04/02/2016 3:46 PM CDT 04/02/2016 4:57 PM CDT Lauryn Hogan MD LAB BLOOD ORDERABLES Final Result [facility] HISTORICAL RESULTS from Last 3 Months or Most Recently Relevant to Health Maintenance Insurance [facility] Care Teams Quality Assurance Coordinator Relationship Specialty Start Date End Date Lauryn Hogan MD [address] [facility] [place] [address] PCP - General Internal Medicine 03/18/22
== END 2024-11-09 14:02 | disposition home or self-care (01) ==
LOC: ANHIMG 14:08
PROVIDERS: PCP Emergency Medicine; Visit Provider Emergency Medicine
DX: R05.9 Cough, unspecified (principal)
CPT/HCPCS: 71046

== ENCOUNTER 2025-01-28 12:22 | Outpatient (CLI) | payer OTHER, SELFPAY ==
--- NOTE | ~2025-01-28 | XR_ITS ---
XR_RIBSBI_CR Ordering provider: Rik Lazaro MD History: . BI rib pain, PAIN X2YRS, INJURY TO RIBS 35YEARS AGO . Comparison: None. FINDINGS: BONES: No acute rib fracture. Possible healing fracture in the left seventh rib is not excluded. MEDIASTINUM: The cardiac silhouette is not enlarged. LUNGS: No effusions or infiltrates. No pneumothorax. SOFT TISSUES: Normal. IMPRESSION: Possible healing fracture in the left seventh rib. No other definite abnormality seen. Reviewed, dictated and finalized at location A.
--- OUTSIDE RECORDS SUMMARY | 2025-01-28 12:48 | XMS_ITS | Data Portability ---
Author Organization [facility] IP Address [address] [place] [address] Care Team Providers Care Manager Editorial Name Role Phone WESLEY NOVA Referring Provider [phone] WESLEY NOVA Primary Care Provider Assessment No assessment recorded. Plan of Treatment Reminders Order Date Submit Date Provider Last Modified By Organization Details Last Modified Time Details Appointments None recorded. Lab urinalysis , dipstick 2017 018 rprophete 1 In-Office Order, Internal Use Only DO Not Attach Compendium DO Not Attach Compendium, Do Not Delete/merge, [id number] 13:12:35 urinalysis , dipstick 2017 018 rprophete 1 In-Office Order, Internal Use Only DO Not Attach Compendium DO Not Attach Compendium, Do Not Delete/merge, [id number] 12:16:15 PSA, serum or plasma 2017 018 [facility] (Lab), [address] [place], [address], 8 07:34:39 Referral None recorded. Procedures None [...] By Organization Details Last Modified Time 01/15/2018 [id number] blood in the urine: care instructions Not available 01/15/2018 12:16:15 Doing US for history of blood in urine. Not available 01/15/2018 12:13:42 01/29/2018 [id number] blood in the urine: care instructions Not [...] DO Not Attach Compendium, Do Not Delete/merge, [id number] 01/15/2018 11:46:46 01/16/20 18 01/15/2018 urina lysis , dipst ick Nitrite negati ve Not Available In-Office Order Internal Use Only DO Not Attach Compendium DO Not Attach Compendium, Do Not Delete/merge, [id number] 01/15/2018 11:46:46 01/16/20 18 01/15/2018 urina lysis , dipst ick Protein Negati ve mg/dL Not Available In-Office Order Internal Use Only DO Not Attach Compendium DO Not Attach Compendium, Do Not Delete/merge, [id number] 01/15/2018 11:46:46 01/16/20 18 01/15/2018 urina lysis , dipst ick pH 5.0 Not Available In-Office Order Internal Use Only DO Not Attach Compendium DO Not Attach Compendium, Do Not Delete/merge, [id number] 01/15/2018 11:46:46 01/16/20 18 01/15/2018 urina lysis , dipst ick Blood Negati ve Jonnathan/uL Not Available In-Office Order Internal Use Only DO Not Attach Compendium DO Not Attach Compendium, Do Not Delete/merge, [id number] 01/15/2018 11:46:46 01/16/20 18 01/15/2018 urina lysis , dipst ick Specific [place] 1.020 Not Available In-Off ice Order Internal Use Only DO Not Attach Compendium DO Not Attach Compendium, Do Not Delete/merge, formerly [facility] 01/15/2018 11:46:46 01/16/20 18 01/15/2018 urina lysis , dipst ick Ketone Negati ve mg/dL Not Available In-Office Order Internal Use Only DO Not Attach Compendium DO Not Attach Compendium, Do Not Delete/merge, formerly [facility] 01/15/2018 11:46:46 01/16/20 18 01/15/2018 urina lysis , dipst ick Bilirubin Negati ve Not Available In-Office Order Internal Use Only DO Not Attach Compendium DO Not Attach Compendium, Do Not Delete/merge, formerly [facility] 01/15/2018 11:46:46 01/16/20 18 01/15/2018 urina lysis , dipst ick Glucose Negati ve mg/dL Not Available In-Office Order Internal Use Only DO Not Attach Compendium DO Not Attach Compendium, Do Not Delete/merge, formerly [facility] 01/15/2018 11:46:46 01/16/20 18 01/15/2018 urina lysis , dipst ick Appearance Clear Not Available In-Offi ce Order Internal Use Only DO Not Attach Compendium DO Not Attach Compendium, Do Not Delete/merge, formerly [facility] 01/15/2018 11:46:46 01/16/20 18 01/15/2018 urina lysis , dipst ick Color Yellow Not Available In-Office Order Internal Use Only DO Not Attach Compendium DO Not Attach Compendium, Do Not Delete/merge, formerly [facility] 01/15/2018 11:46:46 01/30/20 18 01/29/2018 urina lysis , dipst ick Leukocytes Negati ve Not Available In-Office Order Internal Use Only DO Not Attach Compendium DO Not Attach Compendium, Do Not Delete/merge, formerly [facility] 01/29/2018 13:00:37 01/30/20 18 01/29/2018 urina lysis , dipst ick Nitrite negati ve Not Available In-Office Order Internal Use Only DO Not Attach Compendium DO Not Attach Compendium, Do Not Delete/merge, formerly [facility] 01/29/2018 13:00:37 01/30/20 18 01/29/2018 urina lysis , dipst ick Protein Negati ve mg/dL Not Available In-Office Order Internal Use Only DO Not Attach Compendium DO Not Attach Compendium, Do Not Delete/merge, formerly [facility] 01/29/2018 13:00:37 01/30/20 18 01/29/2018 urina lysis , dipst ick pH 6.0 Not Available In-Office Order Internal Use Only DO Not Attach Compendium DO Not Attach Compendium, Do Not Delete/merge, formerly [facility] 01/29/2018 13:00:37 01/30/20 18 01/29/2018 urina lysis , dipst ick Blood Negati ve Jonnathan/uL Not Available In-Office Order Internal Use Only DO Not Attach Compendium DO Not Attach Compendium, Do Not Delete/merge, formerly [facility] 01/29/2018 13:00:37 01/30/20 18 01/29/2018 urina lysis , dipst ick Specific [place]itt 1.015 Not Available In-Off ice Order Internal Use Only DO Not Attach Compendium DO Not Attach Compendium, Do Not Delete/merge, formerly [facility] 01/29/2018 13:00:37 01/30/20 18 01/29/2018 urina lysis , dipst ick Ketone Negati ve mg/dL Not Available In-Office Order Internal Use Only DO Not Attach Compendium DO Not Attach Compendium, Do Not Delete/merge, formerly [facility] 01/29/2018 13:00:37 01/30/20 18 01/29/2018 urina lysis , dipst ick Bilirubin Negati ve Not Available In-Office Order Internal Use Only DO Not Attach Compendium DO Not Attach Compendium, Do Not Delete/merge, formerly [facility] 01/29/2018 13:00:37 01/30/20 18 01/29/2018 urina lysis , dipst ick Glucose Negati ve mg/dL Not Available In-Office Order Internal Use Only DO Not Attach Compendium DO Not Attach Compendium, Do Not Delete/merge, formerly [facility] 01/29/2018 13:00:37 01/30/20 18 01/29/2018 urina lysis , dipst ick Appearance Clear Not Available In-Offi ce Order Internal Use Only DO Not Attach Compendium DO Not Attach Compendium, Do Not Delete/merge, [id number] 01/29/2018 13:00:37 01/30/20 18 01/29/2018 urina lysis , dipst ick Color Yellow Not Available In-Office Order Internal Use Only DO Not Attach Compendium DO Not Attach Compendium, Do Not Delete/merge, [id number] 01/29/2018 13:00:37 01/22/20 18 01/21/2018 US, bladd er No observ ation record ed. Not Available 01/22 14:38:33 02/05/20 18 01/21/2018 US, kidne y No observ ation record ed. [email or web address] [facility] Out Patient Centralized Scheduling [address] [facility] , [place], [address], 02/04/2018 10:10:06 Result Notes None recorded. Problems Name Problem SNOMED Code Status Onset Date Resolution Date Notes Provider Name and Address Organization Details Recorded Time Essential hypertension 42505640 Active 2017 Gwen Kelechi ramos [place] [facility] 8 11:46:13 Problem Notes None recorded. Medical Equipment None Reported. Allergies Allergen ID Allergen Name Allergen Category Reaction Reaction Severity Criticality Documentation Date Start Date Code Code System Note Provider Name and Address Organization Details Recorded Time 514670 purified protein derivativ e of tuberculi n medicatio n Not available Not available Not available 01/15/2018 8948 RxNorm Gwen Lorenz richard [place] [facility] 8 11:44:32 Medications Name Sig Start Date Stop Date [...] Updated DateTime 8 177.8 cm 23.3 kg/m2 68225.1 2 g 73 /min 97.3 [degF] 136 mm[Hg] 93 mm[Hg] Gwen Lorenz [facility] 8 11:42:52 Date Recorded Body height Body mass index (BMI) Body weight Heart rate Body temperature Systolic blood pressure Diastolic blood pressure Provider Name and Address Organization Details Last Updated DateTime 8 177.8 cm 23.4 kg/m2 76652.5 6 g 67 /min 97.3 [degF] 129 mm[Hg] 91 mm[Hg] Gwen Lorenz [facility] 8 13:00:22 Date Recorded Body height Body mass index (BMI) Body weight Heart rate Respiratory rate Body temperature Systolic blood pressure Diastolic blood pressure Provider Name and Address Organization Details Last Updated DateTime 9 175.26 cm 26.6 kg/m2 31319.9 9 g 85 /min 18 /min 97.2 [degF] 132 mm[Hg] 87 mm[Hg] Shahana Mills LPN [facility] 9 16:44:20 Social History Question Answer Notes LastModified by Organizat ion Details LastModified Time Tobacco Smoking Status [facility] 01/15/2018 11:46:27 What Was The Date Of Your Most Recent Tobacco Screening? 01/29/2018 Information n ot available 03/05/2019 Sex: Unknown Functional Status None recorded. Mental Status None recorded. Family History Nothing Reported. Medical History No medical history recorded. Past Encounters Encounter ID Performer Location Encounter Start Date Encounter Closed Date Diagnosis/Indication Diagnosis SNOMED-CT Code Diagnosis ICD10 Code Diagnosis Note [id number] Boom Haywood MD [facility] [address] [place] [address] 01/15/2018 11:15:20 01/15/2018 12:41:12 Blood in urine 80383362 R31.9 [id number] Boom Haywood MD [facility] [address] [place] [address] 01/29/2018 11:43:15 01/29/2018 15:04:24 Blood in urine 54014479 R31.9 [id number] Matias Liriano MD [facility] [address] [place] [address] 08/03/2019 16:33:49 08/04/2019 10:44:48 Oral lesion 2824433270 107 K13.70 i discussed with pt and he agreed to watch it doesn't appear to be a cancer Chronic rhinitis 0098205 6 J31.0 use otc ointment PRN Health Concerns Section Related Observation LastModified by Organization Detai ls LastModified Time None Recorded Concern Status LastModified by Organization Details LastModified Time None Recorded Advance Directives Directive None Recorded Payers Insurance Date Sequence Insurance Name Policy Number Policy Mcallister Covered Member ID Mcallister Member ID Guarantor Name 08/03/2019 1 [facility] PRIOR TO 02/09/2021 (MEDICAID REPLACEMENT - HMO) Nelson Asher [id number] Nelson Randallnoemi Notes Date Note Type Note Provider Name [...] of stones. Boom Haywood MD [address] [place], [address], [place] [facility] 01/15/2018 12:35:26 01/29/2018 text/html No blood or infection in urine now. Normal renal US and PSA.. Boom Haywood MD [address] [place], [address], [place] [facility] 01/29/2018 13:12:38 08/03/2019 text/html Pt complaining o f a lesion in his mouth for the last month. He occasionally get a dry and bleeding in his nose Matias Liriano MD [address] [place], [address], [facility] - [facility] 08/03/2019 17:06:42
== END 2025-01-28 12:23 | disposition home or self-care (01) ==
PROVIDERS: PCP Emergency Medicine; Visit Provider Emergency Medicine
DX: R07.81 Pleurodynia (principal)
CPT/HCPCS: 71110

== ENCOUNTER 2025-04-24 11:19 | Outpatient (CLI) | payer OTHER, SELFPAY ==
--- OUTSIDE RECORDS SUMMARY | 2025-04-24 11:23 | XMS_ITS | Clinical Summary ---
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 Gender Identity Not on file Sexual Orientation [...] 11:53 AM CDT Height 177.8 cm (5' 10) 03/18/2022 11:53 AM CDT Body Mass Index 25.97 03/18/2022 11:53 AM CDT Plan of Treatment Health Maintenance Due Date Last Done Comments Colon Cancer Screening-Colonoscopy 1965 Depression Screening 1965 Hepatitis C Screening 1965 Regular Well Visit/Exam 18-64 1983 Zoster Vaccine (1 of 2) 2015 Prostate Cancer Screening-PSA 04/02/2018 04/02/2016 Covid-19 Vaccine (3 - 2024-2 6 season) 2025 12/30/2020, 12/09/2020 Influenza Vaccine (#1) 2025 05/11/2016 DTaP/Tdap/Td Vaccine (2 - Td or [...] * PSA screen (04/02/2016 3:46 PM CDT) [facility] PSA Screen 0.9 0.0 - 3.9 ng/mL 04/02/2016 5:52 PM CDT [facility]ORICAL RESULTS Comment: Method: ECLIA Values obtained by different assay methods cannot be used interchangeably. Use sequential testing to confirm baseline if assay method changed during patient monitoring. 04/02/2016 3:46 PM CDT 04/02/2016 4:57 PM CDT Lauryn Hogan MD LAB BLOOD ORDERABLES Final Result [facility] HISTORICAL RESULTS from Last 3 Months or Most Recently Relevant to Health Maintenance Insurance [facility] Care Teams Circuit Board Drafter Relationship Specialty Start Date End Date Lauryn Hogan MD [address] [facility] [place] [address] PCP - General Internal Medicine 03/18/22
--- OUTSIDE RECORDS SUMMARY | 2025-04-24 11:23 | XMS_ITS | Clinical Summary ---
Author Organization [facility] Address [address] [place] [address] Care Team Providers Care Medical Management Specialist Name Role Phone Lauryn Hogan MD Primary Care Provider [phone] Source Comments [facility],non-owned Affiliates and Associated Physician Practices is amultiple site organization consisting of ambulatory clinics and hospital sitesin [place], [place], [place] and [place]. This disclosure is being madepursuant to the Care Everywhere program and may not contain all information available regarding this patient. Last updated 18.[facility] Allergies No known active allergies Medications * Be aware that medications may not be up to date on this document. Alwaysverify current medications with the patient. 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 Gender Identity Not on file Sexual Orientation Not on file Last Filed Vital Signs Vital Sign Reading Time Taken Comments Blood Pressure - - Pulse - - Temperature - - Respiratory Rate - - Oxygen Saturation - - Inhaled Oxygen Concentration - - Weight 78 kg (172 lb) 05/08/2024 3:09 PM CDT Height 175.3 cm (5' 9) 05/08/2024 3:09 PM CDT Body Mass Index 25.4 05/08/2024 3:09 PM CDT Plan of Treatment Health Maintenance Due Date Last Done Comments COLOGUARD (AGES 45-75) - COL ON CA SCREENING [...] 2015 ZOSTER VACCINE (1 of 2) 2015 SCREENING FOR DIABETES 05/08/2024 DEPRESSION SCREENING 08/12/2024 COVID-19 VACCINE (1 - 2023-2 5 season) 2025 INFLUENZA VACCINE (#1) 2025 HIB VACCINE Aged Out No longer eligi [...] on patient's age to complete this topic Insurance [employer] Care Teams Medical Management Specialist Relationship Specialty Start Date End Date Lauryn Hogan MD [address] [place] [phone] PCP - General Internal Medicine 05/08/24
--- OUTSIDE RECORDS SUMMARY | 2025-04-24 11:23 | XMS_ITS | Encounter Summary ---
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 Historical Provider Final Res ult documented in this encounter Visit Diagnoses Not on filedocumented in this encounter Care Teams Review Assistant Relationship Specialty Start Date End Date Lauryn Hogan MD [address] [facility] [place] [address] PCP - General Internal Medicine 03/18/22 documented as of this encounter
[2025-04-24 11:50] LABS: Hematocrit 43.3 % (42.0-52.0); Hemoglobin 14.6 g/dL (14.0-18.0); Mean Corpuscular HGB Conc 33.7 g/dl (32-36); Mean Corpuscular Hemoglobin 28.1 pg (26-34); Mean Corpuscular Volume 83.4 fl (80-100); Platelet Count Result 236 k/mm3 (150-375); Red Blood Count 5.19 M/mm3 (4.6-6.20); White Blood Count 5.8 K/mm3 (4.5-10.0)
[2025-04-24 12:19] LABS: Hemoglobin A1C 5.7 % (<5.7)
[2025-04-24 12:23] LABS: MALB Creatinine Ratio 10.7 mg/g (0-30)
[2025-04-24 12:23] LABS: Alanine Aminotransferase 14 U/L (6-50); Albumin Level 4.2 g/dL (3.5-5.1); Alkaline Phosphatase 72 U/L (38-126); Anion Gap 7 mmol/L (4-12); Aspartate Amino Transferase 24 U/L (17-59); Bilirubin,Total 0.8 mg/dL (0.2-1.3); Blood Urea Nitrogen 13 mg/dL (9-20); Calcium 9.2 mg/dL (8.4-10.2); Carbon Dioxide 27 mmol/L (22-30); Chloride 103 mmol/L (98-107); Cholesterol 160 mg/dL (0-200); Estimated Glomerular Filt Rate > 60; Glucose 103 mg/dL (65-110); HDL Direct 43 mg/dL; Potassium 4.1 mmol/L (3.4-5.0); Sodium 137 mmol/L (137-145); Total Protein 7.8 g/dL (6.3-8.2); Triglycerides 71 mg/dL (<150)
[2025-04-24 12:44] LABS: Free T4 Free Thyroxine 1.21 ng/dL (0.78-2.19)
[2025-04-24 12:58] LABS: Prostate Specific Antigen 1.3 ng/mL (< OR = 4.0); Thyroid Stimulating Hormone 0.952 uIU/mL (0.465-4.680)
[2025-04-25 08:41] LABS: Add Urine Microscopic? NO; Appearance Urine Clear (Clear); Glucose Urine UA Negative (Negative); Leukocyte Esterase Ur Negative LEU/UL (Negative); Nitrate Urine Negative (Negative); Specific Grav Ur 1.013 (1.001-1.035)
== END 2025-04-24 11:20 | disposition home or self-care (01) ==
PROVIDERS: PCP Emergency Medicine; Visit Provider Emergency Medicine
DX: Z00.00 Encounter for general adult medical examination without abnormal findings (principal); I10 Essential (primary) hypertension; E78.5 Hyperlipidemia, unspecified; F41.9 Anxiety disorder, unspecified; M54.50 Low back pain, unspecified
CPT/HCPCS: 36415; 80053; 80061; 81003; 82043; 83036; 84153; 84439; 84443; 85027